=== PATIENT | male | born 1980 | race Asian ===

== ENCOUNTER 2019-08-11 16:48 | Emergency (ER) | payer MEDICAID ==
[~2019-08-11] VITALS: Ht 177.8 cm; Wt 59.0 kg
[2019-08-11 16:48] VITALS: BP_SYST 116
--- NOTE | 2019-08-11 16:50 | NUR ---
Patient triaged and placed in waiting room. VSS and patient appears in no acute distress at this time. Accompanied by SELF, awaiting available bed, and MD notified of need for MSE.
--- NOTE | 2019-08-11 18:35 | NUR ---
Patient to ER bed 3 to gown for evaluation. Side rails up.
--- NOTE | 2019-08-11 18:40 | NUR ---
ER Dr. Pretty at bedside examining patient.
--- NOTE | 2019-08-11 18:41 | NUR ---
Patient presented to ER with left jaw pain. Patient A&Ox4, pain 11/26. denies N/V/D, skin pink and warm, cap refill <3, . Patient states pain has been intermittent x1 month.
[2019-08-11] MEDS ORDERED: IBUPROFEN 600 MG TABLET PO ONE (18:45)
[2019-08-11 19:15] VITALS: BP_SYST 119
--- NOTE | 2019-08-11 19:15 | NUR ---
Patient given written and verbal discharge instructions and verbalizes understanding. ER MD discussed with patient the results and treatment provided. Patient in stable condition. ID arm band removed. Rx of Naproxen & tramadol given. Patient educated on pain management and to follow up with PMD. Pain Scale 3/10 tolerable for PT . Opportunity for questions provided and answered. Medication side effect fact sheet provided.
== END 2019-08-11 19:15 | disposition home or self-care (01) ==
LOC: SED 16:48
DX: K02.9 Dental caries, unspecified (principal)
CPT/HCPCS: 99283